=== PATIENT | female | born 1970 | race Caucasian/White ===

== ENCOUNTER 2016-10-25 11:53 | Emergency (ER) | payer OTHER ==
[2016-10-25 12:23] VITALS: BP 144/76; PULSE 71; O2SAT 97
--- NOTE | 2016-10-25 12:40 | ERPHSYRPT ---
- History of Present Illness Time Seen by Provider: 10/25/16 12:18 Source: patient Exam Limitations: clinical condition Patient Subjective Stated Complaint: bit and scratched by family cat on sunday. wanting areas checked to make sure she doesn't need an antibiotic. Triage Nursing Assessment: abrasion and bite mancini noted to upper left leg. areas clean, dry. no redness or drainage noted. Physician History: PATIENT BITTEN AND SCRATCHED BY HER CAT 2 DAYS AGO SUSTAINED ABRASIONS TO LEFT MID OUTER THIGH. DENIES DRAINAGE OR REDNESS AROUND SITES. HAS BEEN CLEANING WOUND WITH SOAP AND WATER. Method of Injury: other (SCRATCHED BITTEN BY CAT) Occurred: days ago Severity of Pain-Max: mild Severity of Pain-Current: mild Lower Extremities Pain: thigh: left Modifying Factors: Improves With: nothing Associated Symptoms: none Allergies/Adverse Reactions: erythromycin base [Erythromycin Base] Allergy (Verified 10/25/16 12:16) Sulfa (Sulfonamide Antibiotics) Allergy (Verified 10/25/16 12:16) Home Medications: No Reportable Medications [No Reported Medications] 10/25/16 [History] Hx Tetanus, Diphtheria Vaccination/Date Given: No Hx Influenza Vaccination/Date Given: No Hx Pneumococcal Vaccination/Date Given: No Immunizations Up to Date: No - Review of Systems Constitutional: No Fever, No Chills Eyes: No Symptoms Ears, Nose, & Throat: No Symptoms Respiratory: No Cough, No Dyspnea Cardiac: No Chest Pain, No Edema, No Syncope Abdominal/Gastrointestinal: No Abdominal Pain, No Nausea, No Vomiting, No Diarrhea Genitourinary Symptoms: No Dysuria Musculoskeletal: Injury, Other (ABRASIONS AND SCRATCHES), No Back Pain, No Neck Pain Skin: No Rash Neurological: No Dizziness, No Focal Weakness, No Sensory Changes Psychological: No Symptoms Endocrine: No Symptoms All Other Systems: Reviewed and Negative - Past Medical History Pertinent Past Medical History: No Neurological History: No Pertinent History ENT History: No Pertinent History Cardiac History: No Pertinent History Respiratory History: No Pertinent History Endocrine Medical History: No Pertinent History Musculoskeletal History: No Pertinent History GI Medical History: No Pertinent History History: No Pertinent History Psycho-Social History: No Pertinent History Female Reproductive Disorders: No Pertinent History - Past Surgical History Past Surgical History: Yes Neuro Surgical History: No Pertinent History Cardiac: No Pertinent History Respiratory: No Pertinent History Gastrointestinal: No Pertinent History, Hernia Repair Genitourinary: No Pertinent History Musculoskeletal: Orthopedic Surgery Female Surgical History: No Pertinent History Other Surgical History: Sx on R hand - Social History Smoking Status: Never smoker Exposure to second hand smoke: No Drug Use: none Patient Lives Alone: No - Female History Hx Last Menstrual Period: 10/05/16 - Nursing Vital Signs Nursing Vital Signs: Initial Vital Signs Temperature 98.1 F Temperature Source Oral Pulse Rate 71 Respiratory Rate 16 Blood Pressure [Right Arm] 144/76 Pain Intensity 3 - Physical Exam Neck Exam: normal inspection Cardiovascular/Respiratory Exam: chest non-tender Gastrointestinal/Abdominal Exam: non-tender Legs Exam: left leg: other (THERE AND SUPERFICAL MULTIPLE ABRASIONS, 2CM AND 4CM IN LENGTH, NO EVIDENCE OF DRAINAGE OR ERYTHREMA, NO OPEN WOUNDS NOTED) SpO2 Interpretation: normal SpO2: 97 Oxygen Delivery: Room Air - Progress Counseled pt/family regarding: diagnosis, need for follow-up - Departure Time of Disposition: 12:45 Departure Disposition: Home Clinical Impression: CAT BITE LEFT THIGH, MULTIPLE ABRASIONS Condition: Stable Critical Care Time: No Instructions: Insect Bites and Stings Additional Instructions: CONTINUE TO CLEANSE ABRASIONS WITH SOAP AND WATER TWICE DAILY WITH APPLICATION OF BACITRACIN OINTMENT OVER ABRASIONS TWICE DAILY FOR 1 WEEK. WATCH FOR SIGNS OF INFECTION, REDNESS, SWELLING OR DRAINAGE OR ONSET OF FEVER.
== END 2016-10-25 13:02 | disposition home or self-care (01) ==
LOC: ED 11:53
DX: S71.152A Open bite, left thigh, initial encounter (principal); W55.01XA Bitten by cat, initial encounter
CPT/HCPCS: 99283

== ENCOUNTER 2016-11-28 21:57 | Emergency (ER) | payer OTHER ==
[2016-11-28] MEDS ORDERED: NORCO 5/325 MG PO ONE (22:19)
--- NOTE | 2016-11-28 22:21 | ERPHSYRPT ---
- History of Present Illness Time Seen by Provider: 11/28/16 22:13 Source: patient Exam Limitations: no limitations Patient Subjective Stated Complaint: pt state she was cleaning and a window came down on her hand. Triage Nursing Assessment: pt alert and oriented, answers questions approp. pt ambulatory with steady gait noted. respirattions nonlabored with lungs cta. swelling noted to lt index finger and 5th digit. small open area noted to 3rd digit. cap refill and sensation wnl. radial pulse wnl. Physician History: ABOUT 30 MINUTES AGO PT WAS AT HOME AND A WINDOW SLAMMED DOWN ON PT'S LEFT HAND WITH RESULTANT PAIN AND SWELLING; DENIES PREVIOUS INJURY TO THE LEFT HAND; PT CAN FEEL HER LEFT HAND. Allergies/Adverse Reactions: erythromycin base [Erythromycin Base] Allergy (Verified 10/25/16 12:16) Sulfa (Sulfonamide Antibiotics) Allergy (Verified 10/25/16 12:16) Hx Tetanus, Diphtheria Vaccination/Date Given: Yes Hx Influenza Vaccination/Date Given: No Hx Pneumococcal Vaccination/Date Given: No Immunizations Up to Date: Yes - Review of Systems Musculoskeletal: Other (LEFT HAND PAIN/SWELLING TONIGHT.) - Past Medical History Pertinent Past Medical History: No Neurological History: No Pertinent History ENT History: No Pertinent History Cardiac History: No Pertinent History Respiratory History: No Pertinent History Endocrine Medical History: No Pertinent History Musculoskeletal History: No Pertinent History GI Medical History: No Pertinent History History: No Pertinent History Psycho-Social History: No Pertinent History Female Reproductive Disorders: No Pertinent History - Past Surgical History Past Surgical History: Yes Neuro Surgical History: No Pertinent History Cardiac: No Pertinent History Respiratory: No Pertinent History Gastrointestinal: No Pertinent History, Hernia Repair Genitourinary: No Pertinent History Musculoskeletal: Orthopedic Surgery Female Surgical History: No Pertinent History Other Surgical History: Sx on R hand - Social History Smoking Status: Never smoker Exposure to second hand smoke: No Drug Use: none Patient Lives Alone: No - Female History Hx Last Menstrual Period: current - Nursing Vital Signs Nursing Vital Signs: Initial Vital Signs Temperature 97.8 F 11/28/16 22:03 Pulse Rate 66 11/28/16 22:03 Respiratory Rate 18 11/28/16 22:03 Blood Pressure 110/64 11/28/16 22:03 O2 Sat by Pulse Oximetry 98 11/28/16 22:03 Pain Scale Pain Intensity 8 - Physical Exam General Appearance: alert Shoulder Exam: normal ROM Elbow/Forearm Exam: normal ROM Wrist Exam: normal ROM Hand Exam: swelling (MODERATE EDEMA AND TENDERNESS OF THE LEFT INDEX FINGER WITH LIMITED ROM OF THE LEFT HAND DIGITS. ALL DIGITS OF THE LEFT HAND HAVE GOOD SENSATION AND CAPILLARY REFILL. SUPERFICIAL ABRASIONS OVER THE EXTENSOR ASPECT OF THE PROXIMAL INDEX AND MIDDLE FINGERS. FAINT MACULAR ERYTHEMA OVER THE LATERAL ASPECT OF THE LEFT SMALL FINGER.) Neuro/Tendon Exam: normal sensation Mental Status Exam: alert, cooperative SpO2 Interpretation: normal SpO2: 98 Oxygen Delivery: Room Air - Course Nursing assessment & vital signs reviewed: Yes - Radiology Exams Left Hand X-ray Interpretation: Interpreted by me, No Fracture Ordered Tests: Active Orders 24 hr Category Date Time Status HAND (MINIMUM 3 VIEWS) Stat Exams 11/28/16 22:20 Ordered Medication Summary Discontinued Medications Generic Name Dose Route Start Last Admin Trade Name Freq PRN Reason Stop Dose Admin Hydrocodone Bitart/Acetaminophen 2 tab 11/28/16 22:19 11/28/16 22:26 [place] 5/325 Mg PO 11/28/16 22:20 2 tab STAT ONE Administration Hydrocodone Bitart/Acetaminophen Confirm 11/28/16 22:25 [place] 5/325 Mg Administered 11/28/16 22:26 Dose 2 tab .ROUTE .STK-MED ONE - Departure Time of Disposition: 23:22 Departure Disposition: Home Clinical Impression: CONTUSION/ABRASIONS OF THE LEFT HAND Condition: Stable Critical Care Time: No Instructions: Contusion Additional Instructions: ELEVATE LEFT HAND ABOVE HEART LEVEL FOR 24 HOURS. WEAR LEFT ARM SLING FOR COMFORT. Prescriptions: Naproxen [Naprosyn] 500 mg PO [id number] PRN #20 tablet PRN Reason: Pain
[2016-11-28] MEDS ORDERED: NORCO 5/325 MG ONE (22:25)
[2016-11-28 23:30] VITALS: BP 104/78; PULSE 78; O2SAT 99
--- NOTE | 2016-11-29 09:04 | XRAY ---
Indication: Second MCP swelling following injury. Comparison: None 3 views of the left hand demonstrates normal bones, articulation, and soft tissues.
== END 2016-11-28 23:27 | disposition home or self-care (01) ==
LOC: ED 21:57
DX: S60.222A Contusion of left hand, initial encounter (principal); S60.512A Abrasion of left hand, initial encounter; W20.8XXA Other cause of strike by thrown, projected or falling object, initial encounter
CPT/HCPCS: 73130; 99282; 99283; A9270-GY